=== PATIENT | female | born 1985 | race Caucasian/White ===

== ENCOUNTER 2022-11-16 16:35 | Outpatient (CLI) | payer MEDICAID, SELFPAY | END 2022-11-16 16:36 | disposition home or self-care (01) | LOC: NFLDREF 11-19 01:15 | PROVIDERS: Visit Provider Registered Nurse | DX: R35.0 Frequency of micturition (principal); N39.0 Urinary tract infection, site not specified | CPT/HCPCS: 87086; 87186 ==

== ENCOUNTER 2023-05-31 18:06 | Outpatient (CLI) | payer MEDICAID, SELFPAY | END 2023-05-31 18:07 | disposition home or self-care (01) | PROVIDERS: Visit Provider Physician Assistant | DX: R30.0 Dysuria (principal); J03.90 Acute tonsillitis, unspecified; N39.0 Urinary tract infection, site not specified | CPT/HCPCS: 87086 ==

== ENCOUNTER 2023-11-04 16:43 | Outpatient (CLI) | payer MEDICAID, SELFPAY | END 2023-11-04 16:44 | disposition home or self-care (01) | LOC: NFLDREF 11-21 01:22 | PROVIDERS: Visit Provider Physician Assistant | DX: R35.0 Frequency of micturition (principal) | CPT/HCPCS: 87086; 87186 ==

== ENCOUNTER 2024-10-21 11:45 | Outpatient (CLI) | payer BC, SELFPAY | END 2024-10-21 11:46 | disposition home or self-care (01) | LOC: NFLDREF 10-24 06:16 | PROVIDERS: Visit Provider Nurse Practitioner Family | DX: N30.90 Cystitis, unspecified without hematuria (principal); B96.4 Proteus (mirabilis) (morganii) as the cause of diseases classified elsewhere | CPT/HCPCS: 87086 ==

== ENCOUNTER 2024-11-21 13:01 | Outpatient (CLI) | payer BC, SELFPAY | END 2024-11-21 13:02 | disposition home or self-care (01) | LOC: NFLDREF 11-24 03:03 | PROVIDERS: Visit Provider Physician Assistant | DX: N39.0 Urinary tract infection, site not specified (principal) | CPT/HCPCS: 87086 ==

== ENCOUNTER 2025-06-09 10:31 | Outpatient (CLI) | payer MEDICAID, SELFPAY | END 2025-06-09 10:32 | disposition home or self-care (01) | LOC: NFLDREF 06-11 12:37 | PROVIDERS: Visit Provider Physician Assistant | DX: R30.0 Dysuria (principal); N39.0 Urinary tract infection, site not specified | CPT/HCPCS: 87086 ==